=== PATIENT | female | born 1960 | race Caucasian/White ===

== ENCOUNTER 2020-12-10 08:02 | Day surgery (SDC) | payer OTHER ==
[~2020-12-10] VITALS: Ht 170.2 cm; Wt 67.3 kg
[2020-12-10] MEDS ORDERED: LEVOTHYROXINE100 MC2 PO (08:15)
--- NOTE | 2020-12-10 10:15 | NUR ---
12/10/20 Sylwia5 Geovanna Cross 1011- PT ARRIVES TO PACU AWAKE AND TALKING. PT REPORTS NO PAIN OR NAUSEA. PT DOES FALL TO SLEEP WHEN NOT BEING STIMULATED. AWAKES WITH VERBAL STIMULI. RESP EVEN AND UNLABORED. OXYGEN SAT HIGH 90'S ON 2L VIA NC.
--- NOTE | 2020-12-10 17:04 | NUR ---
CALLED PT FOR CALL BACK. PT'S REPORTS SHE IS FEELING BETTER THAN EARLIER TODAY AND IS CURRENTLY TAKING A NAP. PT'S EXPRESSES NO CONCERNS OR HAS ANY QUESTIONS.
--- NOTE | 2020-12-11 06:26 | OR ---
[facility] [address], [place] [address] Signed DATE OF OPERATION: 12/10/2020 SURGEON: Escobar Lagunas MD PREOPERATIVE DIAGNOSES: 1. Personal history of colonic polyps in 2016 at age 55. 2. Diverticulosis. 3. Internal and external hemorrhoids. POSTOPERATIVE DIAGNOSES: 1. 2-6 mm polyps x3 in cecum. 2. 3 mm polyp at 10 cm. 3. Minimal sigmoid diverticulosis. 4. Minimal internal hemorrhoids with skin tags. 5. Minimal external hemorrhoids. PROCEDURE: Colonoscopy with hot biopsy. ESTIMATED BLOOD LOSS: None. INDICATIONS: Richa is a 60-year-old female, who underwent a colonoscopy with Dr. Aranda in 2016 at the age of 55. She had an adenomatous polyp taken out of the cecum. She had diverticulosis along with internal and external hemorrhoids. She was asked to follow up for repeat colonoscopy. She has no family history of colon cancer or polyps. No lower GI symptoms. I gave Richa a booklet in the office on endoscopy. She understands the nature of the test along with the risks including, but not limited to gas bloating, crampy abdominal pain, bleeding, perforation requiring surgery, and missed diagnosis. We also discussed the need for IV conscious sedation. She had expressed understanding and wished to proceed. PROCEDURE NOTE: Richa was taken into our endoscopy suite and placed in the left lateral decubitus position. She was given IV sedation with 5 mg of Versed and 150 mcg of fentanyl. A digital rectal exam was performed and this was unremarkable. The adult colonoscope was introduced and advanced under direct visualization of camera. It took some extra sedation and abdominal compression in order to remove the scope through her long somewhat redundant colon. Eventually made it down into the cecum itself. Her prep was Electronically Signed By: ESCOBAR LAGUNAS MD 12/11/20 0626 PATIENT NAME: RICHA STUBBS OPERATIVE REPORT DATE OF : 56 REPORT #: [id number] PHYSICIAN: ESCOBAR LAGUNAS MD PCP: JULIANNA HU REPORT IS CONFIDENTIAL AND NOT TO BE RELEASED WITHOUT AUTHORIZATION [facility] [address], [place] [address] Signed quite good. We could easily see the appendiceal orifice and the ileocecal valve. The above-mentioned polyps were easily removed with the help of hot biopsy forceps. The scope was then slowly withdrawn. She does have diverticula in the sigmoid colon. They were moderate in size, few in number, and scattered about. Once in the rectum, the scope had been retroflexed. She does have small internal hemorrhoids. She has a couple of small anal skin tags as well. After this, the gas was suctioned out and the colonoscope removed. Richa tolerated the procedure quite well. RECOMMENDATIONS: I will see Richa back in my office in 7 to 14 days to review her results. I suspect she will stay on the 5-year rotation. MD JAMIE Mueller/MANASL /[id number] cc: MD Julianna Mueller PA Copies: ESCOBAR LAGUNAS MD, LINDA PA ~ Electronically Signed By: ESCOBAR LAGUNAS MD 12/11/20 0626 PATIENT NAME: RICHA STUBBS OPERATIVE REPORT DATE OF : 56 REPORT #: [id number] PHYSICIAN: ESCOBAR LAGUNAS MD PCP: JULIANNA HU REPORT IS CONFIDENTIAL AND NOT TO BE RELEASED WITHOUT AUTHORIZATION
[2020-12-11] MEDS ORDERED: HYDROCODON-ACE1 EA10 PO (12:29)
--- NOTE | 2020-12-11 15:22 | PATH ---
[facility] [address], [place] [address] Signed SPECIMEN(S): A COLON POLYP 10 CM SPECIMEN(S): B CECAL POLYP SPECIMEN SOURCE: A. COLON POLYP 10 CM B. CECAL POLYP CLINICAL HISTORY: Colonoscopy. Internal and external hemorrhoids, polyps, diverticulosis. Postop: Internal/external hemorrhoids. MICROSCOPIC DESCRIPTION: Histologic sections of all submitted blocks are examined by light microscopy. These findings, together with the gross examination, support the pathologic diagnosis. FINAL PATHOLOGIC DIAGNOSIS: A. Colon, polyp at 10 cm, polypectomy: - Hyperplastic polyp. - Negative for dysplasia or malignancy. B. Colon, cecum, polyp, polypectomy: - Fragments of cauterized colonic mucosa with no histopathologic abnormality. - Negative for dysplasia or malignancy. COMMENT: Regarding specimen B: The cautery artifact precludes complete histologic examination of the entire biopsied mucosa. NAL:cml:C2NR GROSS DESCRIPTION: Two specimens are received in two containers, labeled "DH." A. The specimen, labeled "DH, 1," and designated on the requisition "colon polyp at 10 cm," is received in formalin and consists of one sheehan soft tissue fragment that measures 0.3 cm in greatest dimension. The specimen is entirely submitted in cassette (A1). B. The specimen, labeled "DH, 2," and designated on the requisition "cecal polyp," is received in formalin and consists of four sheehan soft tissue fragments that measure up to 0.4 cm in greatest dimension. The specimen is entirely submitted in cassette (B1). AT (under the direct supervision of a pathologist) The Gross Description was prepared using a voice recognition system. The report was reviewed for accuracy; however, sound-alike word errors, addition and/or PATIENT NAME: RICHA STUBBS PATHOLOGY DATE OF : 56 REPORT #: [id number] PHYSICIAN: ELEONORA VELEZ PCP: BOOKER HU REPORT IS CONFIDENTIAL AND NOT TO BE RELEASED WITHOUT AUTHORIZATION [facility] [address], [place] [address] Signed deletions may occur. If there is any question about this report, please contact Client Services. PERFORMING LABORATORY: The technical component was performed by [facility], [address] [place] [id number] ([place]: Karyn Pérez MD; CLIA# [id number]). [facility], [address] [address] (CLIA# [id number]). Diagnostician: Jaida Cohen MD Pathologist Electronically Signed 12/11/2020 Copies: ~ PATIENT NAME: RICHA STUBBS PATHOLOGY DATE OF : 56 REPORT #: [id number] PHYSICIAN: ELEONORA PATHOLOGY PCP: BOOKER HU REPORT IS CONFIDENTIAL AND NOT TO BE RELEASED WITHOUT AUTHORIZATION
== END 2020-12-10 11:25 | disposition home or self-care (01) ==
LOC: OPS 08:02 → DS 08:02 → OPS 09:00 → DS 12-29 09:00 → OPS 12-29 09:00
PROVIDERS: ATTEND Colon & Rectal Surgery
PROC: 0DBH8ZX Excision of Cecum, Via Natural or Artificial Opening Endoscopic, Diagnostic (ICD-10-PCS; principal; 2020-12-10 09:00)
DX: Z12.11 Encounter for screening for malignant neoplasm of colon (principal); K63.5 Polyp of colon; K57.30 Diverticulosis of large intestine without perforation or abscess without bleeding; N18.30 Chronic kidney disease, stage 3 unspecified; E78.5 Hyperlipidemia, unspecified; E03.8 Other specified hypothyroidism; K64.0 First degree hemorrhoids; K64.4 Residual hemorrhoidal skin tags; Z87.891 Personal history of nicotine dependence
CPT/HCPCS: 99153; G0500; J2250; J2405; J3010; J7121

== ENCOUNTER 2020-12-11 08:51 | Emergency (ER) | payer OTHER ==
[~2020-12-11] VITALS: Ht 170.2 cm; Wt 68.5 kg
[~2020-12-11 08:51] MED LIST: LEVOTHYROXINE100 MC2 PO
[2020-12-11] MEDS ORDERED: HYDROCODON-ACE1 EA10 PO (12:29)
== END 2020-12-11 12:49 | disposition home or self-care (01) ==
LOC: ED 08:51
DX: G89.18 Other acute postprocedural pain (principal); R10.31 Right lower quadrant pain; Z86.010 Personal history of colon polyps; E03.9 Hypothyroidism, unspecified; Z87.891 Personal history of nicotine dependence; Z79.899 Other long term (current) drug therapy
CPT/HCPCS: 74177; 80053; 83690; 85025; 85610; 85730; 86850; 86900; 86901; 99284-25; J7030; Q9967